=== PATIENT | female | born 1955 | race Two or more races ===

== ENCOUNTER 2024-11-11 14:52 | Emergency (ER) | payer MEDICARE, MEDICAID, SELFPAY ==
[2024-11-11 14:54] VITALS: BMI 27.4
[2024-11-11 15:10] VITALS: BP 160/99; PULSE 68; RESP 18; TEMP 36.9; O2SAT 95
[2024-11-11 15:11] VITALS: BMI 23.3
--- NOTE | 2024-11-11 15:18 | XR_ITS ---
Examination: CT lumbar spine, without contrast. 2-D sagittal reconstructions. 2-D coronal reconstructions. 3-D reconstructions. Date and time of exam:November 11, 2024 1502 hours INDICATIONS: Lower back pain nonhealing wound in the back, clinical diagnosis lower back infection CTDI: vol (mGy):18.8 DLP: (mGycm):497 Technique: Multiple 1.25 mm axial sections of the lumbar spine without intravenous contrast have been obtained. 2-D sagittal and coronal reconstructions have been obtained. 3-D reconstructions have been obtained. Low dose protocols were performed. One or more of the following dose reduction techniques were used; automated exposure control, adjustment of the mA and/or KV according to patient size, use of iterative reconstruction technique. Findings: Extensive edema in the subcutaneous fatty tissue posterior to the lumbar spine especially at the L3 and L4 levels, sagittal image 34 No drainable fluid-filled abscess Severe chronic osteoporotic compressions all lumbar vertebral bodies The pedicles and laminae transverse and posterior spinous processes appear intact Mild to millimeters central lumbar disc bulges at all levels Pathologic bone destruction involving the T12 vertebral body Please see the CT thoracic spine report to follow IMPRESSION: Severe osteopenia Extensive edema, cellulitis in the soft tissue posterior to the lumbar spine especially at the L3-L4 levels, but no fluid-filled drainable abscess Chronic osteoporotic compressions all lumbar vertebral bodies Pathologic bone destruction involving the T12 vertebral body, recommend MRI thoracic lumbar spine pre and post contrast follow-up
--- NOTE | 2024-11-11 15:18 | XR_ITS ---
Examination: CT thoracic spine, without contrast. 2-D sagittal reconstructions. 2-D coronal reconstructions. 3-D reconstructions. Date and time of exam:November 11, 2024 1549 hours INDICATIONS: Nonhealing wound with edema in the back, mid back pain this week CTDI: vol (mGy):21.9 DLP: (mGycm):729 Technique: Multiple 1.25 mm axial sections of the thoracic spine without intravenous contrast have been obtained. 2-D sagittal and coronal reconstructions have been obtained. 3-D reconstructions have been obtained. Low dose protocols were performed. One or more of the following dose reduction techniques were used; automated exposure control, adjustment of the mA and/or KV according to patient size, use of iterative reconstruction technique. Findings: Severe osteopenia Chronic osteoporotic compressions T12, T11, T10, T9, T8, T7, T6, T5, T4, T2 Pathologic appearing T12 vertebral body with cortical bone destruction, differential would include osteomyelitis, osseous metastatic disease Recommend MRI thoracic spine follow-up pre and postcontrast IMPRESSION: Pathologic appearing T12 vertebral body with cortical bone destruction Recommend MRI thoracic spine follow-up pre and postcontrast
--- NOTE | 2024-11-11 15:18 | XR_ITS ---
Examination: Ultrasound soft tissue extremity midline back TECHNIQUE: Sonographic images soft tissue midline back Exam date and time: 11/11/2024 1524 hours INDICATIONS: Palpable lump mid back with pain noted onset today FINDINGS: Edema at the area concern 2.2 x 0.7 x 2.0 cm IMPRESSION: Superficial edema at the area concern, consider CT examination back at the area concern follow-up, post intravenous contrast
--- NOTE | 2024-11-11 15:19 | PD.EDRME ---
Rapid Medical Screening Exam E Arrival date/time: 11/11/24 14:52 69-year-old female presents the emergency department complains of pain to the back patient reports ulceration to the back. Chief Complaint: Chest Pain Vital signs: Vital Signs Temperature 98.4 F 11/11/24 15:10 Pulse Rate 68 11/11/24 15:10 Respiratory Rate 18 11/11/24 15:10 Blood Pressure 160/99 H 11/11/24 15:10 Pulse Oximetry (%) 95 11/11/24 15:10 Oxygen Delivery Method Room Air 11/11/24 15:10
[2024-11-11 16:08] LABS: Basophils % (Auto) 0 % (0-2.5); Eosinophils # (Auto) 0.1 Thou/mm3 (0.0-0.5); Eosinophils % (Auto) 2 % (0-10); Hematocrit 38.2 % (36.0-46.0); Hemoglobin 12.4 g/dL (12.0-16.0); Immature Granulocytes % (Auto) 0 % (0-0); Immature Granulocytes Auto 0.01 Thou/mm3 (0.00-0.00); Lymphocytes # (Auto) 1.5 Thou/mm3 (1.0-4.8); Lymphocytes % (Auto) 34 % (10-50); Mean Corpuscular HGB Conc 32.5 g/dl (31.0-37.0); Mean Corpuscular Hemoglobin 30.7 pg (25.0-35.0); Mean Corpuscular Volume 95 fL (80-100); Monocytes # (Auto) 0.5 Thou/mm3 (0.0-0.8); Monocytes % (Auto) 12 % (0-12); Neutrophils # (Auto) 2.2 Thou/mm3 (1.8-7.7); Neutrophils % (Auto) 51 % (37-80); Nucleated Red Blood Cell % 0 /100 WBC (0); Platelet Count 157 Thou/mm3 (140-440); RDW Standard Deviation 48.4 fL (36.4-46.3); Red Blood Count 4.04 Miln/mm3 (4.00-5.20); White Blood Count 4.3 Thou/mm3 (3.6-11.0)
[2024-11-11 16:32] LABS: Alanine Aminotransferase 50 U/L (10-49); Albumin, Serum 4.2 gm/dL (3.4-4.8); Albumin/Globulin Ratio 1.1 (1.2-2.2); Alkaline Phosphatase 118 U/L (46-116); Anion Gap 6 (7-16); Aspartate Amino Transferase 40 U/L (0-34); BUN/Creatinine Ratio 33 Ratio (12-20); Bilirubin,Total 0.4 mg/dL (0.3-1.2); Blood Urea Nitrogen 20 mg/dL (9-23); Chloride 102 mMol/L (98-107); Creatinine (Component) 0.6 mg/dL (0.6-1.3); Estimated Creatinine Clearance 63.6 mL/min (>60); Glucose 99 mg/dL (74-106); Osmolality,Calculated 283 (275-295); Potassium 4.1 mMol/L (3.4-5.1); Sodium 141 mMol/L (136-145); Total Protein 8.2 gm/dL (5.7-8.2); eGFR > 60 See Note
[2024-11-11 16:41] LABS: Amphetamine/Methamp Scrn,U Positive (Negative); Barbiturate Screen,Urine Negative (Negative); Benzodiazepines Screen,Urine Negative (Negative); Benzoylecgonine Screen, Ur Negative (Negative); Fentanyl Screen,Urine Positive (Negative); Opiate Screen,Urine Negative (Negative); THC Screen,Urine Positive (Negative)
[2024-11-11 20:24] VITALS: BP 176/102; PULSE 68; RESP 18; TEMP 37.1; O2SAT 95
--- NOTE | 2024-11-11 20:39 | EDNOTE_ITS ---
ED General RME/HPI General Chief complaint: Skin/Abscess/Foreign Body Stated complaint: WOUND TO BACK, PAIN IN CHEST Time Seen by Provider: 11/11/24 16:56 Arrival date/time: 11/11/24 14:52 Limitations: no limitations RME / HPI RME / HPI narrative: 11/11/24 14:52 69-year-old female presents the emergency department complains of pain to the back patient reports ulceration to the back. DR. JUAN MAIN ED EVALUATION: 69 year old female presents to the Emergency Department with complaint of a hole in my back , she has an ulceration area on her back. Symptoms are moderate. Patient denies any fevers, chills, or any other symptoms at this time. PMHx: Hypertension, pelvic mass, PINA, Hep C (unknown if treated), osteoarthritis, COPD on home O2 (2L), substance use disorder [opioid use]. Kyphosis for 15 years. Social Hx: No tobacco, alcohol, or substance use. Related Data Allergies Allergy/AdvReac Type Severity Reaction Status Date / Time morphine Allergy Intermediate Rash Verified 11/11/24 14:54 Review of Systems Review of Systems Systems Reviewed: All systems reviewed, normal except as documented Narrative Review of Systems: GEN: No fever, no chills, no weight loss EYES: No discharge, no visual changes, no pain HEENT: No ear pain, no congestion, no sore throat PULM: No shortness of breath, no cough, no congestion CV: No chest pain, no dyspnea on exertion, no palpitations GI: No nausea, no vomiting, no diarrhea, no pain, no constipation : No frequency, no urgency and no dysuria MUSC/SKEL: No joint pain SKIN: No rash. + back ulceration/ skin redness (see HPI) PSYCH: No hallucinations, no depression HEME/LYMPH: No easy bleeding or bruising tendencies NEURO: No weakness, no headache Past Medical History Past Medical History NEUROLOGIC: Negative Neurological Disorders or Seizures CARDIAC: Positive Hypercholesterolemia, Edema and Hypertension; Negative Cardiac Disorders or Congestive Heart Failure RESPIRATORY: Positive Chronic Obstructive Pulmonary Disease (COPD), Asthma, Pneumonia, Sleep Apnea, Tobacco Use and Intubation GASTROINTESTINAL: Positive Gastrointestinal Disorders, Hepatitis and Gastroesophageal Reflux Disease GENITOURINARY: Negative Genitourinary Disorders or Renal Disease REPRODUCTIVE: Positive Uterine Prolapse; Negative Pelvic Inflammatory Disease MUSCULOSKELETAL: Positive Musculoskeletal Disorders and Arthritis ENDOCRINE: Negative Endocrine Disorders, Diabetes Mellitus Type 1 or Diabetes Mellitus Type 2 HEMATOLOGIC: Negative Blood Disorders or Sickle Cell Disease PSYCHO/SOCIAL: Positive Recreational Drug Use and Depression OTHER HISTORY: Positive Chicken Pox; Negative Hospitalization, Autoimmune Disease, Down Syndrome, Developmental Delay, Shingles, Falls, Blood Transfusions, Blood Transfusion Reaction, Anesthesia Reactions, Organ Transplant, Chemotherapy, Radiation Therapy, Hyperbaric Therapy, MRSA, VRSA, Vancomycin-Resistant Enterococci, Human Immunodeficiency Virus (HIV), Measles, Mumps, Rubella (Ma[place] Measles), Pertussis, Clostridium Difficile or Cancer Family History FAMILY HISTORY: Negative Family Respiratory Disorders, Family Cardiac Disorders or Family Gastrointestinal Problems Surgical History SURGICAL: Positive Cardiac Surgery, Hysterectomy and Tubal Ligation; Negative Endocrine Surgery, Ear Surgery, Abdominal Surgery, Nephrectomy, Joint Replacement, Neurologic Surgery or Organ Transplant Social History SMOKING STATUS: Never smoker SECOND HAND EXPOSURE: Yes SUBSTANCE USE: opiates and methamphetamine ED Exam General Limitations: Present no limitations General appearance: Present alert and in no apparent distress Head Head exam: Present atraumatic, normocephalic and normal inspection Eye Eye exam: Present normal appearance, PERRL and EOMI ENT ENT exam: Present normal exam, normal oropharynx and mucous membranes moist Neck Neck exam: Present normal inspection, full ROM and trachea midline Chest Chest inspection: Present normal inspection and symmetric chest wall rise Respiratory Respiratory exam: Present normal lung sounds bilaterally Cardiovascular Cardiovascular exam: Present regular rate, normal rhythm and normal heart sounds Abdominal Exam Abdominal exam: Present soft and normal bowel sounds; Absent mass Extremities Exam Extremities exam: Present full ROM and other (chronic vascular changes in her lower legs and all the way up to her knees) Back Exam Back exam: Present other (10 cm by 5 cm area of erythema, not warm to touch, and in the center of that there is an open wound in her back located in her kyphotic area, kyphosis for 15 years.) Neurological Exam Neurological exam: Present alert, oriented X3 and CN II-XII intact Psychiatric Psychiatric exam: Present normal affect and normal mood Skin Skin exam: Present warm, dry, intact and other (see back exam) Course Course Course Narrative: OBSERVATION NOTE: The patient was placed in ED observation care at 11/12/24 at 2100 hours. The patient was placed in ED observation care because of pending MRI. The patients past medical history, social history, and family history were reviewed. The plan of care will include serial examinations. 0600: Care signed out to Dr. Mancia (emergency physician). Past medical, surgical, social and family history reviewed. Vitals and home medications reviewed. Results and treatment plan discussed. They will assume the care of the patient at this time and will follow the patient, pending MRI of the thoracic spine. At this time, observation has ended. Quality Measures none Orders Category Date Time Status EKG (ED ONLY) *Do not use* NOW Care 11/11/24 20:52 Completed MRI Screening NOW Care 11/12/24 02:37 Active MRI Screening NOW Care 11/12/24 02:37 Active Miscellaneous Nursing Order X1 Care 11/11/24 20:[address] lumbar spine wo con Stat Exams 11/11/24 15:[address] thoracic spine wo con Stat Exams 11/11/24 15:18 Completed EKG (ED Only) Stat Exams 11/11/24 20:51 Draft MR thoracic spine wo/w con Stat Exams 11/12/24 Ordered US soft tissue lower back abd Stat Exams 11/11/24 15:18 Completed Blood Culture (Lab) Stat Lab 11/11/24 23:29 Received CBC Stat Lab 11/11/24 15:46 Completed CMP [Comprehensive Metabolic Panel] Stat Lab 11/11/24 15:46 Completed Drug Screen,Urine Stat Lab 11/11/24 15:41 Completed Clindamycin/Ns 600 mg Ivpb [Cleocin/Ns Ivpb] Med 11/11/24 23:00 Active 600 mg in 50 ml IV Q8HR Vancomycin Inj 1,000 mg Med 11/11/24 23:00 Discontinued Sodium Chloride 0.9% 250 ml [Ns] 250 ml IV X1 Vital Signs Vital signs: Vital Signs Temperature 98.4 F 11/11/24 15:10 Pulse Rate 68 11/11/24 15:10 Respiratory Rate 18 11/11/24 15:10 Blood Pressure 160/99 H 11/11/24 15:10 Pulse Oximetry (%) 95 11/11/24 15:10 Oxygen Delivery Method Room Air 11/11/24 15:10 [facility] Patient data External records reviewed:: [facility] previous records (Reviewed last ED visit dated 04/07/24, discharged with the following: Foot laceration) Clinical information provided by:: patient Social determinants that could affect healthcare access:: none Patient has the following chronic illnesses:: Hypertension, pelvic mass, PINA, Hep C (unknown if treated), osteoarthritis, COPD on home O2 (2L), substance use disorder [opioid use]. Kyphosis for 15 years. How is presenting disease/condition affected by chronic disease/condition?: e xacerbated by Evaluation data The following diagnostics were reviewed and interpreted by me:: lab results, radiology exam(s) and EKG tracing(s) (done at 2252, NSR, rate of 66, normal intervals, normal axis, no STEMI, according to my interpretation.) Lab and/or radiology exams considered but not ordered:: none Interpretation Summary: Procedure(s): CT thoracic spine wo con Accession Number(s): [id number] cc: Saloni (CORAL),Karthikeyan MONCADA; Roldan Mcfarland MD; Jack Dumont MD~ Examination: CT thoracic spine, without contrast. 2-D sagittal reconstructions. 2-D coronal reconstructions. 3-D reconstructions. Date and time of exam:November 11, 2024 1549 hours INDICATIONS: Nonhealing wound with edema in the back, mid back pain this week CTDI: vol (mGy):21.9 DLP: (mGycm):729 Technique: Multiple 1.25 mm axial sections of the thoracic spine without intravenous contrast have been obtained. 2-D sagittal and coronal reconstructions have been obtained. 3-D reconstructions have been obtained. Low dose protocols were performed. One or more of the following dose reduction techniques were used; automated exposure control, adjustment of the mA and/or KV according to patient size, use of iterative reconstruction technique. Findings: Severe osteopenia Chronic osteoporotic compressions T12, T11, T10, T9, T8, T7, T6, T5, T4, T2 Pathologic appearing T12 vertebral body with cortical bone destruction, differential would include osteomyelitis, osseous metastatic disease Recommend MRI thoracic spine follow-up pre and postcontrast IMPRESSION: Pathologic appearing T12 vertebral body with cortical bone destruction Recommend MRI thoracic spine follow-up pre and postcontrast Dictated By: Jack Dumont MD Procedure(s): US soft tissue lower back abd Accession Number(s): [id number] cc: Saloni STANLEY),Karthikeyan MONCADA; Jack Dumont MD~ Examination: Ultrasound soft tissue extremity midline back TECHNIQUE: Sonographic images soft tissue midline back Exam date and time: 11/11/2024 1524 hours INDICATIONS: Palpable lump mid back with pain noted onset today FINDINGS: Edema at the area concern 2.2 x 0.7 x 2.0 cm IMPRESSION: Superficial edema at the area concern, consider CT examination back at the area concern follow-up, post intravenous contrast Dictated By: Jack Dumont MD Procedure(s): CT lumbar spine wo con Accession Number(s): [id number] cc: Saloni STANLEY),Karthikeyan MONCADA; Roldan Mcfarland MD; Jack Dumont MD~ Examination: CT lumbar spine, without contrast. 2-D sagittal reconstructions. 2-D coronal reconstructions. 3-D reconstructions. Date and time of exam:November 11, 2024 1502 hours INDICATIONS: Lower back pain nonhealing wound in the back, clinical diagnosis lower back infection CTDI: vol (mGy):18.8 DLP: (mGycm):497 Technique: Multiple 1.25 mm axial sections of the lumbar spine without intravenous contrast have been obtained. 2-D sagittal and coronal reconstructions have been obtained. 3-D reconstructions have been obtained. Low dose protocols were performed. One or more of the following dose reduction techniques were used; automated exposure control, adjustment of the mA and/or KV according to patient size, use of iterative reconstruction technique. Findings: Extensive edema in the subcutaneous fatty tissue posterior to the lumbar spine especially at the L3 and L4 levels, sagittal image 34 No drainable fluid-filled abscess Severe chronic osteoporotic compressions all lumbar vertebral bodies The pedicles and laminae transverse and posterior spinous processes appear intact Mild to millimeters central lumbar disc bulges at all levels Pathologic bone destruction involving the T12 vertebral body Please see the CT thoracic spine report to follow IMPRESSION: Severe osteopenia Extensive edema, cellulitis in the soft tissue posterior to the lumbar spine especially at the L3-L4 levels, but no fluid-filled drainable abscess Chronic osteoporotic compressions all lumbar vertebral bodies Pathologic bone destruction involving the T12 vertebral body, recommend MRI thoracic lumbar spine pre and post contrast follow-up Dictated By: Jack Dumont MD Medications Medications considered but not ordered:: none Medication administrations:: Medication Administration History Clindamycin/Sodium Chloride (Cleocin/Ns Ivpb) 600 mg in 50 mls @ 100 mls/hr IV Q8HR RANULFO Stop: 11/18/24 22:59 Last Infusion: 11/12/24 00:10 Dose: Infused Documented By: Admin: 11/11/24 23:26 Dose: 100 mls/hr Documented By: SF Discontinued Medications Vancomycin HCl 1,000 mg/ (Sodium Chloride) 250 mls @ 150 mls/hr IV X1 ONE Stop: 11/12/24 00:39 Last Infusion: 11/12/24 01:55 Dose: Infused Documented By: Admin: 11/12/24 00:09 Dose: 150 mls/hr Documented By: ANDRES see above if any Consultations Consultation(s) initiated? (list below): No Diagnosis Differential Diagnosis ED Complaint MDM: osteomyelitis, cellulitis, ulcer Most likely diagnosis given after review of the tests above:: MRI pending at sign out. Admission Indicated Admission indicated?: not indicated Explain why admission is indicated or not indicated:: Patient is pending MRI of the thoracic spine at signout to r/o osteomyelitis. Admission Request Was there a request for admission?: No Disposition Plan Disposition Plan: other (specify) (Signed out to Dr. Mancia at 0600 pending MRI of the thoracic spine.) Medical Decision Making MDM Narrative MDM Narrative: I, Angeline Keating am scribing for and in the presence of Dr. Juan. Differential Diagnosis Differential Diagnosis: osteomyelitis, cellulitis, ulcer Lab Data 11/11/24 15:46 11/11/24 15:46 Labs: Lab Results 11/11/24 11/11/24 Range/Units 15:41 15:46 WBC 4.3 (3.6-11.0) Thou/mm3 RBC 4.04 (4.00-5.20) Miln/mm3 Hgb 12.4 (12.0-16.0) g/dL Hct 38.2 (36.0-46.0) % MCV 95 (80-100) fL MCH 30.7 (25.0-35.0) pg MCHC 32.5 (31.0-37.0) g/dl RDW Std Deviation 48.4 H (36.4-46.3) fL Plt Count 157 (140-440) Thou/mm3 Neut % (Auto) 51 (37-80) % Lymph % (Auto) 34 (10-50) % [place] % (Auto) 12 (0-12) % Eos % (Auto) 2 (0-10) % Baso % (Auto) 0 (0-2.5) % Neut # (Auto) 2.2 (1.8-7.7) Thou/mm3 Lymph # (Auto) 1.5 (1.0-4.8) Thou/mm3 [place] # (Auto) 0.5 (0.0-0.8) Thou/mm3 Eos # (Auto) 0.1 (0.0-0.5) Thou/mm3 Baso # (Auto) 0.0 (0.0-0.2) Thou/mm3 Immature Gran # (Auto) 0.01 H (0.00-0.00) Thou/mm3 Absolute Nucleated RBC 0.00 (0.00-0.00) Thou/mm3 Immature Gran % 0 (0-0) % Nucleated RBC % 0 (0) /100 WBC Sodium 141 (136-145) mMol/L Potassium 4.1 (3.4-5.1) mMol/L Chloride 102 (98-107) mMol/L Carbon Dioxide 33.0 H (20.0-31.0) mMol/L Anion Gap 6 L (7-16) BUN 20 (9-23) mg/dL Creatinine 0.6 (0.6-1.3) mg/dL Estim Creat Clear Calc 63.6 (>60) mL/min eGFR > 60 (60 - ) See Note BUN/Creatinine Ratio 33 H (12-20) Ratio Glucose 99 (74-106) mg/dL Calculated Osmolality 283 (275-295) Calcium 9.0 (8.3-10.6) mg/dL Corrected Calcium 9.0 (8.5-10.1) mg/dL Total Bilirubin 0.4 (0.3-1.2) mg/dL AST 40 H (0-34) U/L ALT 50 H (10-49) U/L Alkaline Phosphatase 118 H (46-116) U/L Total Protein 8.2 (5.7-8.2) gm/dL Albumin 4.2 (3.4-4.8) gm/dL Globulin 4.0 H (2.3-3.5) gm/dL Albumin/Globulin Ratio 1.1 L (1.2-2.2) Urine Opiates Screen Negative (Negative) Urine Fentanyl Screen Positive A (Negative) Ur Barbiturates Screen Negative (Negative) U Amphetamin/Meth Scrn Positive A (Negative) U Benzodiazepines Scrn Negative (Negative) U Cocaine Metab Screen Negative (Negative) U Marijuana (THC) Screen Positive A (Negative) Discharge Plan Plan Disposition Comment: Stable at discharge Prescriptions/Referrals Referrals: Roldan Mcfarland MD [Primary Care Provider] - In 1 week Problem List Clinical Impression: Methadone dependence, Compression fracture, Chronic back pain Patient/Caregiver Discharge Instructions Print Language: Yakut
--- NOTE | 2024-11-11 20:45 | PC.NURSE ---
PT TO ER WITH C/O HAVING A HOLE IN MY BACK . PT PRESENTS WITH AN ABSCESS TO BACK AREA THAT APPEARS RED, SWELLING AND MINIMAL DISCHARGE. PT STATES SHE NOTED IT WHEN A FRIEND TOLD HER SHE HAD A HOLD IN HER BACK YESTERDAY. PT HAS HX OF KYPHOSIS FOR APPROX 15 YEARS. PT DENIES ANY RECENT FEVER. OR INJURY TO AREA. PT PLACED ON VITAL MACHINE MONITORING. CALL LIGHT WITHIN REACH. LOW AT LOWEST POSITION. PT WALKER WITHIN REACH.
--- NOTE | 2024-11-11 20:51 | EKG_ITS ---
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
[2024-11-11] MEDS: CLINDAMYCIN/NS 600 MG IVPB 600 MG/50 ML BAG 100 MG IV (23:26)
[2024-11-12] VITALS (12 sets, daily range): BP systolic 120–165; BP diastolic 62–88; PULSE 58–92; RESP 16–19; TEMP 36.4–37.2; O2SAT 95–100
--- NOTE | 2024-11-12 | XR_ITS ---
Examination: MRI lumbar spine, without intravenous contrast. Exam date and time: November 12, 2024 1216 hours Technique: Multiple axial, sagittal and coronal images of the lumbar spine have been obtained with the Siemens high-resolution 1.5 Alison MRI scanner. Images obtained included T2 weighted fat suppressed sagittal sections, TR 3500, TE 46, T2 weighted coronal fat suppressed images, TR 3050, TE 84, T2-weighted transverse fat suppressed images, TR 30-60, TE 63, proton density transverse images, TR 4720, TE 46, and T1 weighted coronal images, TR 560, TE 13. Patient could not tolerate the postcontrast images. Findings: Severe osteopenia Chronic osteoporotic compressions all lumbar vertebral bodies Cortical bone destruction involving the compressed T12 vertebral body The patient could not tolerate the contrast images, hopefully these can be obtained follow-up as they are essential for confirming osseous metastatic disease IMPRESSION: Cortical bone destruction involving the compressed T12 vertebral body Focally the patient can return for postcontrast images to assess this vertebral body
--- NOTE | 2024-11-12 | XR_ITS ---
Examination: MRI thoracic spine, without intravenous contrast. MRI thoracic spine , with intravenous contrast. Exam date and time: November 12, 2024 1216 hours INDICATIONS: History chronic lower back pain, pathologic appearing fracture T12 vertebral body Technique: Multiple axial, sagittal and coronal images of the thoracic spine have been obtained with the Siemens high-resolution 1.5 Alison MRI scanner. Images obtained included T2 weighted fat suppressed sagittal sections, TR 3500, TE 46, T2 weighted coronal fat suppressed images, TR 3050, TE 84, T2-weighted transverse fat suppressed images, TR 30-60, TE 63, proton density transverse images, TR 4720, TE 46, and T1 weighted coronal images, TR 560, TE 13. Patient could not tolerate postcontrast imaging Findings: Limited study, the patient could not tolerate postcontrast images Pathologic appearing compression of the T12 vertebral body, the posterior margin of this vertebral mildly impinging upon the thoracic cord, sagittal image 5 Oblique the patient can return after sedation for follow-up images post contrast to best exclude osseous metastatic disease Chronic osteoporotic compressions more upper dorsal vertebral bodies are noted IMPRESSION: Pathologic appearing compression of the T12 vertebral body Hopefully the patient should return with prestudy sedation to complete the postcontrast images
[2024-11-12] MEDS: Vancomycin Inj 1,000 MG in SODIUM CHLORIDE 0.9% 250 ML 250 ML 150 MG IV (00:09)
[2024-11-12] MEDS: CLINDAMYCIN/NS 600 MG IVPB 600 MG/50 ML BAG 100 MG IV ×3 (06:34→23:55)
--- NOTE | 2024-11-12 06:44 | PD.EDADDENDU ---
Emergency Room Addendum <Alondra Dela Cruz - Last Filed: 11/12/24 13:56> Addendum Narrative: 0600: Care assumed from Dr. Juan, the previous shift emergency physician. Past medical, surgical, social and family history reviewed. Vitals and home medications reviewed. I will assume the care of the patient at this time, pending MRI thoracic spine wo/w. Please refer to the emergency department record for history and examination from initial visit.? Nursing notes reviewed by me. Vital signs reviewed by me. [facility] reviewed by me. Patient was last evaluated in the ED on 04/07/2024 for foot pain. <Angeline Keating - Last Filed: 11/12/24 19:08> Addendum Narrative: 0600: Care assumed from Dr. Juan, the previous shift emergency physician. Past medical, surgical, social and family history reviewed. Vitals and home medications reviewed. I will assume the care of the patient at this time, pending MRI thoracic spine wo/w. Please refer to the emergency department record for history and examination from initial visit.? Nursing notes reviewed by me. Vital signs reviewed by me. [facility] records reviewed by me. Patient was last evaluated in the ED on 04/07/2024 for foot pain. 1800: Patient was signed out to Dr. Juan. Past medical, surgical, social and family history reviewed. Vitals and home medications reviewed. Results and treatment plan discussed. They will assume the care of the patient at this time and will follow the patient, pending continuation of care. RADIOLOGY Procedure(s): MR lumbar spine wo/w con Accession Number(s): [id number] cc: Roldan Mcfarland MD; Jack Dumont MD; Saba Mancia MD~ Examination: MRI lumbar spine, without intravenous contrast. Exam date and time: November 12, 2024 1216 hours Technique: Multiple axial, sagittal and coronal images of the lumbar spine have been obtained with the Siemens high-resolution 1.5 Alison MRI scanner. Images obtained included T2 weighted fat suppressed sagittal sections, TR 3500, TE 46, T2 weighted coronal fat suppressed images, TR 3050, TE 84, T2-weighted transverse fat suppressed images, TR 30-60, TE 63, proton density transverse images, TR 4720, TE 46, and T1 weighted coronal images, TR 560, TE 13. Patient could not tolerate the postcontrast images. Findings: Severe osteopenia Chronic osteoporotic compressions all lumbar vertebral bodies Cortical bone destruction involving the compressed T12 vertebral body The patient could not tolerate the contrast images, hopefully these can be obtained follow-up as they are essential for confirming osseous metastatic disease IMPRESSION: Cortical bone destruction involving the compressed T12 vertebral body Focally the patient can return for postcontrast images to assess this vertebral body Dictated By: Jack Dumont MD Procedure(s): MR thoracic spine wo/w con Accession Number(s): [id number] cc: Roldan Mcfarland MD; Jack Dumont MD; Doreen Juan MD~ Examination: MRI thoracic spine, without intravenous contrast. MRI thoracic spine , with intravenous contrast. Exam date and time: November 12, 2024 1216 hours INDICATIONS: History chronic lower back pain, pathologic appearing fracture T12 vertebral body Technique: Multiple axial, sagittal and coronal images of the thoracic spine have been obtained with the Siemens high-resolution 1.5 Alison MRI scanner. Images obtained included T2 weighted fat suppressed sagittal sections, TR 3500, TE 46, T2 weighted coronal fat suppressed images, TR 3050, TE 84, T2-weighted transverse fat suppressed images, TR 30-60, TE 63, proton density transverse images, TR 4720, TE 46, and T1 weighted coronal images, TR 560, TE 13. Patient could not tolerate postcontrast imaging Findings: Limited study, the patient could not tolerate postcontrast images Pathologic appearing compression of the T12 vertebral body, the posterior margin of this vertebral mildly impinging upon the thoracic cord, sagittal image 5 Oblique the patient can return after sedation for follow-up images post contrast to best exclude osseous metastatic disease Chronic osteoporotic compressions more upper dorsal vertebral bodies are noted IMPRESSION: Pathologic appearing compression of the T12 vertebral body Hopefully the patient should return with prestudy sedation to complete the postcontrast images Dictated By: Jack Dumont MD
--- NOTE | 2024-11-12 07:22 | PC.NURSE ---
report received from pm nurse, patient lying on her right lateral side, no apparent distress noted, patient asleep awakens to voice, skin warm dry and pink, patient to er with c/o chest pain and wound to mid back. Currently, patient denies chest pain however, c/o mid back soreness at wound site and rates it at an 8/10 and is tolerable at this time, patient awaiting MRI scan, VSS, patient up to bathroom using walker without assistance.
[2024-11-12] MEDS: LORazepam 2 MG/ML VIAL 1 MG IVP (09:31)
[2024-11-12] MEDS: HYDROmorphone INJ 2 MG/ML VIAL 1 MG IVP (10:00)
[2024-11-12] MEDS: ONDANSETRON INJ 2 MG/ML INJ 2 ML 4 MG IV (10:01)
--- NOTE | 2024-11-12 10:20 | PC.NURSE ---
Per Clay, industrial machine system technician states he was unable to do exam do to patient not being able to lie flat on MRI table, Dr. Mancia suggesting placing patient on her side, per Tech states unable to get images with patient on her side, Dr. Mancia made aware.
--- NOTE | 2024-11-12 11:45 | PC.NURSE ---
Patient lying in gurney on her left side sleeping, arouses and responds normally to voice, Spoke with biology specimen technician, Al states they will attempt to do MRI with patient on her side shortly.
--- NOTE | 2024-11-12 12:00 | PC.NURSE ---
Patient gone back to MRI
--- NOTE | 2024-11-12 14:09 | PC.NURSE ---
Patient lying in gurney sleeping awakens to voice, skin warm dry and pink, awaiting MRI results, call light within reach.
--- NOTE | 2024-11-12 17:04 | PC.NURSE ---
Spoke with Clay from MRI states patient was on MRI table was given contrast and patient refused to continue with study do to having too much pain, therefore they , asked Clay if he could take patient back to MRI to complete exam if we administer pain medication, per Clay they will have to wait for 24 hrs before administering more contrast for exam, Dr. Mancia made aware, ok to feed patient will order late tray.
--- NOTE | 2024-11-12 17:55 | PC.NURSE ---
Patient provided with dinner tray
[2024-11-12 18:27] LABS: Basophils % (Auto) 1 % (0-2.5); Eosinophils # (Auto) 0.1 Thou/mm3 (0.0-0.5); Eosinophils % (Auto) 2 % (0-10); Hematocrit 38.6 % (36.0-46.0); Hemoglobin 12.5 g/dL (12.0-16.0); Immature Granulocytes % (Auto) 0 % (0-0); Immature Granulocytes Auto 0.01 Thou/mm3 (0.00-0.00); Lymphocytes % (Auto) 28 % (10-50); Mean Corpuscular HGB Conc 32.4 g/dl (31.0-37.0); Mean Corpuscular Hemoglobin 30.3 pg (25.0-35.0); Mean Corpuscular Volume 94 fL (80-100); Monocytes # (Auto) 0.5 Thou/mm3 (0.0-0.8); Monocytes % (Auto) 14 % (0-12); Neutrophils % (Auto) 55 % (37-80); Nucleated Red Blood Cell % 0 /100 WBC (0); Platelet Count 169 Thou/mm3 (140-440); RDW Standard Deviation 46.6 fL (36.4-46.3); Red Blood Count 4.13 Miln/mm3 (4.00-5.20); White Blood Count 3.7 Thou/mm3 (3.6-11.0)
[2024-11-12 18:34] LABS: Alanine Aminotransferase 59 U/L (10-49); Albumin, Serum 3.7 gm/dL (3.4-4.8); Alkaline Phosphatase 96 U/L (46-116); Anion Gap 2 (7-16); Aspartate Amino Transferase 68 U/L (0-34); BUN/Creatinine Ratio 21 Ratio (12-20); Bilirubin,Total 0.7 mg/dL (0.3-1.2); Blood Urea Nitrogen 15 mg/dL (9-23); Calcium (Corrected) 9.2 mg/dL (8.5-10.1); Carbon Dioxide 35.9 mMol/L (20.0-31.0); Chloride 101 mMol/L (98-107); Creatinine (Component) 0.7 mg/dL (0.6-1.3); Estimated Creatinine Clearance 54.5 mL/min (>60); Globulin 3.7 gm/dL (2.3-3.5); Glucose 62 mg/dL (74-106); Osmolality,Calculated 276 (275-295); Sodium 139 mMol/L (136-145); Total Protein 7.4 gm/dL (5.7-8.2); eGFR > 60 See Note
[2024-11-12 18:49] LABS: Sed Rate (ESR) 24 mm/hr (0-30)
--- NOTE | 2024-11-12 19:08 | EDNOTE_ITS ---
Emergency Room Addendum <Angeline Keating - Last Filed: 11/12/24 22:07> Addendum Narrative: 1800: Care assumed from Dr. Mancia, the previous shift emergency physician. Past medical, surgical, social and family history reviewed. Vitals and home medications reviewed. I will assume the care of the patient at this time, pending continuation of care including continue giving antibiotics. Please refer to the emergency department record for history and examination from initial visit.? Physical exam by me shows patient is afebrile, sitting in bed, sleeping. Will repeat MRI in the morning and re-evaluate. 0600: Patient was signed out to Dr. Mancia Past medical, surgical, social and family history reviewed. Vitals and home medications reviewed. Results and treatment plan discussed. They will assume the care of the patient at this time and will follow the patient, pending repeat MRI. <Lara Mcfarland - Last Filed: 11/13/24 04:18> Addendum Narrative: 1800: Care assumed from Dr. Mancia, the previous shift emergency physician. Past medical, surgical, social and family history reviewed. Vitals and home medications reviewed. I will assume the care of the patient at this time, pending continuation of care including continue giving antibiotics. Please refer to the emergency department record for history and examination from initial visit.? Physical exam by me shows patient is afebrile, sitting in bed, sleeping. Will repeat MRI in the morning and re-evaluate. OBSERVATION NOTE: The patient was placed in ED observation care at 11/12/24 at 1800 hours. The patient was placed in ED observation care because of pending repeat MRI. The patients past medical history, social history, and family history were reviewed. The plan of care will include serial examinations. 0600: Patient was signed out to Dr. Mancia Past medical, surgical, social and family history reviewed. Vitals and home medications reviewed. Results and humble tment plan discussed. They will assume the care of the patient at this time and will follow the patient, pending repeat MRI. At this time, observation has ended.
--- NOTE | 2024-11-13 | XR_ITS ---
Examination: MRI thoracic spine with intravenous contrast TECHNIQUE: Multiple axial sagittal MR images thoracic spine post intravenous administration 10 cc gadolinium Exam date and time: November 13, 2024 0943 hours INDICATIONS: CT thoracic spine November 11, 2024 pathologic appearing severe compression fracture T12 vertebral body, significant back pain this week FINDINGS: Severe osteopenia Multiple chronic osteoporotic compressions vertebral bodies However, no pathologic abnormal enhancement of thoracic vertebral bodies including no abnormal enhancement involving the compressed T12 vertebral body IMPRESSION: No findings diagnostic for osseous metastatic disease
--- NOTE | 2024-11-13 | XR_ITS ---
Examination: MRI lumbar spine with intravenous contrast TECHNIQUE: Multiple axial sagittal MR thoracic spine images post intravenous ministration 10 cc gadolinium INDICATIONS: Back pain this week, CT scan lumbar spine November 11, 2024 severe osteopenia, severe compression fracture T12 vertebral body with possible pathologic bone destruction Exam date and time: November 13, 2024 at 0934 hours FINDINGS: Severe osteopenia Chronic osteoporotic compressions lumbar vertebral bodies Minimal enhancement midportion compressed T12 vertebral body indicating subacute or acute nature of the compression fracture,. However no abnormal enhancement diagnostic for osseous metastatic disease Also no enhancing epidural tumor impinging upon the conus medullaris IMPRESSION: No findings diagnostic for osseous metastatic disease
[2024-11-13 02:53] VITALS: BP 158/82; PULSE 64; RESP 18; TEMP 36.6; O2SAT 95
--- NOTE | 2024-11-13 05:59 | EDNOTE_ITS ---
Emergency Room Addendum Addendum Narrative: 0600: Care assumed from Dr. Juan, the previous shift emergency physician. Past medical, surgical, social and family history reviewed. Vitals and home medications reviewed. I will assume the care of the patient at this time, pending repeat lumbar spine and thoracic spine MRIs and final disposition. Please refer to the emergency department record for history and examination from initial visit.? Physical exam by me shows patient under no acute distress at this time. 1220: Patient remains clinically stable throughout the emergency department visit. Re-assessment at the time of disposition demonstrates that the patient is in no acute distress. We reviewed all the results, analysis, and treatment plans. Patient is amenable to discharge. Strict return precautions were outlined. Patient was discharged in stable condition. Diagnoses: Methadone dependence, Compression fracture, Chronic back pain, Skin infection, Amphetamine abuse RADIOLOGY Procedure(s): MR lumbar spine w con Accession Number(s): [id number] cc: Roldan Mcfarland MD; Jack Dumont MD; Saba Mancia MD~ Examination: MRI lumbar spine with intravenous contrast TECHNIQUE: Multiple axial sagittal MR thoracic spine images post intravenous ministration 10 cc gadolinium INDICATIONS: Back pain this week, CT scan lumbar spine November 11, 2024 severe osteopenia, severe compression fracture T12 vertebral body with possible pathologic bone destruction Exam date and time: November 13, 2024 at 0934 hours FINDINGS: Severe osteopenia Chronic osteoporotic compressions lumbar vertebral bodies Minimal enhancement midportion compressed T12 vertebral body indicating subacute or acute nature of the compression fracture,. However no abnormal enhancement diagnostic for osseous metastatic disease Also no enhancing epidural tumor impinging upon the conus medullaris IMPRESSION: No findings diagnostic for osseous metastatic disease Dictated By: Jack Dumont MD Procedure(s): MR thoracic spine w [facility] Accession Number(s): [id number] cc: Roldan Mcfarland MD; Jack Dumont MD; Saba Mancia MD~ Examination: MRI thoracic spine with intravenous contrast TECHNIQUE: Multiple axial sagittal MR images thoracic spine post intravenous administration 10 cc gadolinium Exam date and time: November 13, 2024 0943 hours INDICATIONS: CT thoracic spine November 11, 2024 pathologic appearing severe compression fracture T12 vertebral body, significant back pain this week FINDINGS: Severe osteopenia Multiple chronic osteoporotic compressions vertebral bodies However, no pathologic abnormal enhancement of thoracic vertebral bodies including no abnormal enhancement involving the compressed T12 vertebral body
[2024-11-13 06:21] VITALS: BP 130/69; PULSE 61; RESP 16; TEMP 36.5; O2SAT 99
[2024-11-13] MEDS: CLINDAMYCIN/NS 600 MG IVPB 600 MG/50 ML BAG 100 MG IV (06:28)
[2024-11-13 08:34] VITALS: BP 139/86; PULSE 61; RESP 16; TEMP 36.7; O2SAT 98
[2024-11-13] MEDS: HYDROmorphone INJ 2 MG/ML VIAL 1 MG IVP (09:16)
[2024-11-13] MEDS: LORazepam 2 MG/ML VIAL 1 MG IVP (09:19)
[2024-11-13 11:01] VITALS: BP 119/57; PULSE 59; RESP 16; TEMP 36.8; O2SAT 99
[2024-11-13] MEDS: TRIMETHOPRIM/SULFA 160/800 DS TABLET 1 TAB PO (12:43)
--- NOTE | 2024-11-13 13:05 | PC.NURSE ---
patient is homeless, she is provided with food, and clothing.
== END 2024-11-13 13:31 | disposition home or self-care (01) ==
PROVIDERS: Nurse Practitioner Primary Care; Emergency Provider Emergency Medicine; PCP Family Medicine
DX: M48.54XA Collapsed vertebra, not elsewhere classified, thoracic region, initial encounter for fracture (principal); F11.20 Opioid dependence, uncomplicated; M89.8X8 Other specified disorders of bone, other site; R94.31 Abnormal electrocardiogram [ECG] [EKG]; M81.0 Age-related osteoporosis without current pathological fracture; L03.312 Cellulitis of back [any part except buttock and flank]; I10 Essential (primary) hypertension; E78.00 Pure hypercholesterolemia, unspecified
CPT/HCPCS: 36415; 72128; 72131; 72147; 72149; 72157; 72158; 76705; 80053; 80307; 85025; 85652; 87040; 93005; 96365; 96366; 96367; 96375; 96376; 99285; A9579; J2060; J2405; J3371; J3490; J7050; S0077; A9270; J0737

== ENCOUNTER 2025-08-09 12:36 | Emergency (ER) | payer MEDICARE, MEDICAID, SELFPAY ==
[2025-08-09] VITALS (13 sets, daily range): BP systolic 120–154; BP diastolic 63–93; PULSE 56–68; RESP 18–20; TEMP 36.6–36.9; O2SAT 91–97; BMI 29.4
--- NOTE | 2025-08-09 13:04 | XR_ITS ---
Examination: CT abdomen and pelvis without contrast. Coronal 3-D reconstructions. Sagittal 2-D reconstructions. Date and time of exam: August 09, 2025, 1423 hours INDICATIONS: Vaginal bleeding and abdominal pain beginning 5 weeks ago COMPARISON: March 07, 2022 CTDI: vol (mGy): 6.24 DLP: (mGycm): 308 Technique: Axial images of the abdomen have been obtained, 3 mm slice thickness Intravenous contrast material has not been administered. Low dose protocols were performed. One or more of the following dose reduction techniques were used; automated exposure control, adjustment of the mA and/or KV according to patient size, use of iterative reconstruction technique. 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
--- NOTE | 2025-08-09 13:04 | XR_ITS ---
Examination: Pelvic ultrasound, transabdominal, complete Technique: Transabdominal ultrasound of the pelvis performed using grayscale imaging Date and time of exam: August 09, 2025, 1514 hours INDICATIONS: Vaginal bleeding beginning 3 weeks ago FINDINGS: Complex mass in the mid pelvis 12.6 x 8.3 x 8.6 cm Ovaries are obscured by bowel gas IMPRESSION: Large complex mass in the mid pelvis on this limited study Recommend repeating the CT pelvis portion of the study with intravenous contrast
--- NOTE | 2025-08-09 13:05 | PD.EDRME ---
Rapid Medical Screening Exam RME Arrival date/time: 08/09/25 12:36 70-year-old female with a history of a hysterectomy presents to the emergency room with a chief complaint of vaginal bleeding x 5 weeks I have greeted and performed a focused initial assessment of this patient. A comprehensive ED assessment and evaluation of the patient, analysis of all test results, and completion of the medical decision making process will be conducted by additional ED providers. Chief Complaint: Urogenital-Female Time Seen by Provider: 08/09/25 12:44 Vital signs: Vital Signs Temperature 98.5 F 08/09/25 12:53 Pulse Rate 65 08/09/25 12:53 Respiratory Rate 18 08/09/25 12:53 Blood Pressure 154/93 H 08/09/25 12:53 Pulse Oximetry (%) 95 08/09/25 12:53 Oxygen Delivery Method Room Air 08/09/25 12:53 Vital signs reviewed by provider: Yes
[2025-08-09 13:34] LABS: Collection Type, Urine Clean Catch
[2025-08-09 14:07] LABS: Amphetamine/Methamp Scrn,U Positive (Negative); Barbiturate Screen,Urine Negative (Negative); Benzodiazepines Screen,Urine Negative (Negative); Benzoylecgonine Screen, Ur Negative (Negative); Fentanyl Screen,Urine Negative (Negative); Opiate Screen,Urine Negative (Negative); THC Screen,Urine Negative (Negative)
[2025-08-09 14:14] LABS: Basophils # (Auto) 0.0 Thou/mm3 (0.0-0.2); Basophils % (Auto) 0 % (0-2.5); Eosinophils # (Auto) 0.3 Thou/mm3 (0.0-0.5); Eosinophils % (Auto) 4 % (0-10); Hematocrit 37.0 % (36.0-46.0); Hemoglobin 12.1 g/dL (12.0-16.0); Immature Granulocytes Auto 0.02 Thou/mm3 (0.00-0.00); Lymphocytes # (Auto) 1.9 Thou/mm3 (1.0-4.8); Lymphocytes % (Auto) 23 % (10-50); Mean Corpuscular HGB Conc 32.7 g/dl (31.0-37.0); Mean Corpuscular Hemoglobin 30.5 pg (25.0-35.0); Mean Corpuscular Volume 93 fL (80-100); Monocytes # (Auto) 0.7 Thou/mm3 (0.0-0.8); Monocytes % (Auto) 9 % (0-12); Neutrophils # (Auto) 5.1 Thou/mm3 (1.8-7.7); Neutrophils % (Auto) 64 % (37-80); Nucleated Red Blood Cell # 0.00 Thou/mm3 (0.00-0.00); Nucleated Red Blood Cell % 0 /100 WBC (0); Platelet Count 147 Thou/mm3 (140-440); RDW Standard Deviation 45.6 fL (36.4-46.3); Red Blood Count 3.97 Miln/mm3 (4.00-5.20); White Blood Count 8.0 Thou/mm3 (3.6-11.0)
--- NOTE | 2025-08-09 14:23 | PD.EDRME ---
Rapid Medical Screening Exam RME Arrival date/time: 08/09/25 12:36 08/09/25 12:36 70-year-old female with a history of a hysterectomy presents to the emergency room with a chief complaint of vaginal bleeding x 5 weeks I have greeted and performed a focused initial assessment of this patient. A comprehensive ED assessment and evaluation of the patient, analysis of all test results, and completion of the medical decision making process will be conducted by additional ED providers. Chief Complaint: Urogenital-Female Time Seen by Provider: 08/09/25 12:44 Vital signs: Vital Signs Temperature 98.5 F 08/09/25 12:53 Pulse Rate 65 08/09/25 12:53 Respiratory Rate 18 08/09/25 12:53 Blood Pressure 154/93 H 08/09/25 12:53 Pulse Oximetry (%) 95 08/09/25 12:53 Oxygen Delivery Method Room Air 08/09/25 12:53 RME Narrative: 08/09/25 12:36 70-year-old female with a history of a hysterectomy presents to the emergency room with a chief complaint of vaginal bleeding x 5 weeks I have greeted and performed a focused initial assessment of this patient. A comprehensive ED assessment and evaluation of the patient, analysis of all test results, and completion of the medical decision making process will be conducted by additional ED providers.
[2025-08-09 14:25] LABS: Bacteria,Urine Rare; Bilirubin,Urine Negative (Negative); Blood,Urine Trace (Negative); Clarity,Urine Turbid (Clear/Hazy); Color,Urine Yellow (Lt Yel-Yel); Glucose, Urine Negative (Negative); Ketones,Urine Negative (Negative); Leukocyte Esterase,Urine Positive (Negative); Nitrite,Urine Negative (Negative); PH,Urine 6.5 (5.0-7.0); Protein,Urine Trace (Neg - Trace); RBC,Urine 17 /hpf (0-3); Specific Gravity,Urine 1.025 (1.001-1.035); Squamous Epithelial Cell,Urine < 1 /hpf (0-5); Urobilinogen,Urine OVER mg/dL (0.0-1.0); WBC,Urine 89 /hpf (0-5)
[2025-08-09 14:33] LABS: Alanine Aminotransferase 36 U/L (10-49); Albumin, Serum 3.1 gm/dL (3.4-4.8); Albumin/Globulin Ratio 0.7 (1.2-2.2); Alkaline Phosphatase 78 U/L (46-116); Anion Gap 7 (7-16); Aspartate Amino Transferase 46 U/L (0-34); BUN/Creatinine Ratio 18 Ratio (12-20); Bilirubin,Total 0.5 mg/dL (0.3-1.2); Blood Urea Nitrogen 9 mg/dL (9-23); Calcium 8.8 mg/dL (8.3-10.6); Calcium (Corrected) 9.5 mg/dL (8.5-10.1); Carbon Dioxide 33.0 mMol/L (20.0-31.0); Chloride 99 mMol/L (98-107); Creatinine (Component) 0.5 mg/dL (0.6-1.3); Estimated Creatinine Clearance 79.1 mL/min (>60); Globulin 4.4 gm/dL (2.3-3.5); Glucose 94 mg/dL (74-106); Lipase 21 U/L (12-53); Osmolality,Calculated 276 (275-295); Potassium 4.9 mMol/L (3.4-5.1); Sodium 139 mMol/L (136-145); Total Protein 7.5 gm/dL (5.7-8.2); eGFR > 60 See Note
[2025-08-09 14:37] LABS: INR 1.1 (0.9-1.3); Partial Thromboplastin Time 28.0 Seconds (22.0-36.0); Prothrombin Time 11.3 Seconds (9.0-12.2)
--- NOTE | 2025-08-09 15:07 | XR_ITS ---
Examination: Transvaginal ultrasound of the pelvis, complete Technique: Transvaginal sonographic images pelvis performed using de souza scale imaging Exam date and time: August 09, 2025, 1506 hours INDICATIONS: Vaginal bleeding beginning 3 weeks ago FINDINGS: Uterus 7.1 cm Midline heterogeneous mass which is very poorly visualized, 12.6 x 8.3 x 8.6 cm Ovaries are obscured by bowel gas IMPRESSION: Limited study with possible central pelvic mass Recommend CT scan repeat pelvis with intravenous contrast .
--- NOTE | 2025-08-09 16:10 | XR_ITS ---
Examination: CT chest with intravenous contrast CT abdomen with intravenous contrast CT pelvis with intravenous contrast 2-D coronal and sagittal reconstructions Time of exam: August 09, 2025, 1720 hours INDICATIONS: Chest pain lower abdominal pain vaginal bleeding today CTDI: vol (mGy) : 6.01 DLP: (mGycm): 367 Technique: Multiple axial images of the chest, abdomen and pelvis with intravenous contrast, 3.0 mm slice thickness. Images obtained post intravenous injection Isovue 370 60 cc. 2-D sagittal and coronal reconstructions. Low dose protocols were performed. One or more of the following dose reduction techniques were used; automated exposure control, adjustment of the mA and/or KV according to patient size, use of iterative reconstruction technique. Findings: No thoracic aortic aneurysm dilatation No pulmonary artery filling defects No paratracheal or tracheobronchial or bronchopulmonary adenopathy No pneumonia or pulmonary edema Liver is irregular in contour Distended gallbladder with extrahepatic biliary tract dilatation No hydronephrosis Aortic calcification no aneurysmal dilatation Abundant stool throughout the colon No pericecal inflammatory change Intact urinary bladder Vaginal pessary, pelvic floor prolapse Masslike area, sagittal image 85, 11 x 6.5 cm which may be mass in the vagina and involving the cervix, clinical correlation advised IMPRESSION: No pneumonia or pulmonary edema Masslike area 11 x 6.5 cm which may be mass in the vagina involving the cervix, recommend MRI pelvis follow-up pre and postcontrast
--- NOTE | 2025-08-09 16:29 | PD.EDFMALE ---
ED Female Urogenital RME/HPI General Chief complaint: Urogenital-Female Stated complaint: VAGINAL BLEEDING FOR 5 DAYS Time Seen by Provider: 08/09/25 12:44 Arrival date/time: 08/09/25 12:36 RME / HPI RME / HPI Narrative: 08/09/25 12:36 70-year-old female with a history of a hysterectomy presents to the emergency room with a chief complaint of vaginal bleeding x 5 weeks I have greeted and performed a focused initial assessment of this patient. A comprehensive ED assessment and evaluation of the patient, analysis of all test results, and completion of the medical decision making process will be conducted by additional ED providers. DR. ALEJANDRA MAIN ED EVALUATION 70 year old post menopausal female (5-10 years) presents to the ED for evaluation of vaginal bleeding beginning 5 weeks ago. Accompanied by genital pain and weight loss in the last 2 weeks. Denies consulting with PCP or PROVIDER NETWORK MANAGER since onset. Denies fevers, chills, abdominal pain, n/v/d, constipation, or urinary symptoms. Related Data Previous Rx's ?Medication ?Instructions ?Recorded sulfamethoxazole 800 1 tab PO BID #20 tabs 11/13/24 mg-trimethoprim 160 mg tablet (Bactrim DS) Allergies Allergy/AdvReac Type Severity Reaction Status Date / Time morphine Allergy Intermediate Rash Verified 08/09/25 12:38 Review of Systems Review of Systems Systems Reviewed: All systems reviewed, normal except as documented Past Medical History Past Medical History CARDIAC: Positive Hypercholesterolemia, Edema and Hypertension RESPIRATORY: Positive Chronic Obstructive Pulmonary Disease (COPD), Pneumonia, Sleep Apnea, Tobacco Use and Intubation GASTROINTESTINAL: Positive Gastrointestinal Disorders, Hepatitis and Gastroesophageal Reflux Disease REPRODUCTIVE: Positive Uterine Prolapse MUSCULOSKELETAL: Positive Musculoskeletal Disorders and Arthritis PSYCHO/SOCIAL: Positive Recreational Drug Use and Depression OTHER HISTORY: Positive Chicken Pox Surgical History SURGICAL: Positive Cardiac Surgery, Hysterectomy and Tubal Ligation Social History SMOKING STATUS: Never smoker SECOND HAND EXPOSURE: Yes SUBSTANCE USE: opiates and methamphetamine ED Exam Narrative Physical exam: Constitutional: Awake, alert, nontoxic, no acute distress though does appear uncomfortable HEENT: Normocephalic, atraumatic, extraocular movements intact. Neck: Supple CV: Regular rate and rhythm, no murmurs/rubs/gallops Lungs: Clear to auscultation BL, no respiratory distress. Abd: Soft, tenderness to lower abdomen with increased fullness, no rebound, no guarding, no HSM noted to palpation Pelvic: Exam performed in presence of female RN. With speculum exam, there is a device in the vaginal vault that is hard and rectangular shaped, query pessary, positive tenderness, there is bright red blood, no large amount of bleeding during exam. Extremities: No deformities, no edema noted Neuro: AAOx3, CN 2-12 GIBL Skin: Warm, dry, intact Course Course Course Narrative: 1800h: Patient signed out to Dr. Allen pending CT chest abdomen pelvis w/ con and final disposition. Quality Measures none Orders Category Date Time Status CT Screening NOW Care 08/09/25 16:[address] abdomen pelvis wo con Stat Exams 08/09/25 13:[address] chest abdomen pelvis w Stat Exams 08/09/25 16:10 Taken US pelvic complete Stat Exams 08/09/25 13:04 Completed US transvaginal Stat Exams 08/09/25 15:07 Completed CBC Stat Lab 08/09/25 13:52 Completed CMP [Comprehensive Metabolic Panel] Stat Lab 08/09/25 13:52 Completed Drug Screen,Urine Stat Lab 08/09/25 13:23 Completed Lipase Stat Lab 08/09/25 13:52 Completed PT [Prothrombin Time with INR] Stat Lab 08/09/25 13:52 Completed PTT [Partial Thromboplastin Time] Stat Lab 08/09/25 13:52 Completed Type and Screen Stat Lab 08/09/25 13:52 Completed UA [Urinalysis] Stat Lab 08/09/25 13:23 Completed Urine Culture Stat Lab 08/09/25 13:23 Received Vital Signs Vital signs: Vital Signs Temperature 98.5 F 08/09/25 12:53 Pulse Rate 65 08/09/25 12:53 Respiratory Rate 18 08/09/25 12:53 Blood Pressure 154/93 H 08/09/25 12:53 Pulse Oximetry (%) 95 08/09/25 12:53 Oxygen Delivery Method Room Air 08/09/25 12:53 Pulse ox is 95% on room air which is adequate. Urogenital - Female MDM Narrative MDM Narrative:: Alondra Diaz am scribing for and in the presence of Dr. Alejandra. Patient data External records reviewed:: [facility] previous records Clinical information provided by:: patient Social determinants that could affect healthcare access:: substance use Patient has the following chronic illnesses:: Hypertension, hyperlipidemia, pelvic mass, COPD, previous opioid use disorder, on Methadone How is presenting disease/condition affected by chronic disease/condition?: exacerbated by Evaluation data The following diagnostics were reviewed and interpreted by me:: lab results and radiology exam(s) Lab and/or radiology exams considered but not ordered:: None Interpretation Summary: Ordering Physician: Manjit Bower Date of Service: 08/09/25 Procedure(s): CT abdomen pelvis wo con Accession Number(s): [id number] cc: Manjit Bower; Taylor Dubois CLOTH SHRINKING SUPERVISOR; Jack Dumont MD~ Examination: CT abdomen and pelvis without contrast. Coronal 3-D reconstructions. Sagittal 2-D reconstructions. Date and time of exam: August 09, 2025, 1423 hours INDICATIONS: Vaginal bleeding and abdominal pain beginning 5 weeks ago COMPARISON: March 07, 2022 CTDI: vol (mGy): 6.24 DLP: (mGycm): 308 Technique: Axial images of the abdomen have been obtained, 3 mm slice thickness Intravenous contrast material has not been administered. Low dose protocols were performed. One or more of the following dose reduction techniques were used; automated exposure control, adjustment of the mA and/or KV according to patient size, use of iterative reconstruction technique. 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 Dictated By: Jack Dumont MD Signed By: <Electronically signed by Jack Dumont MD in OV> 08/09/25 1542 Ordering Physician: Manjit Bower Date of Service: 08/09/25 Procedure(s): US pelvic complete Accession Number(s): [id number] cc: Manjit Bower; Taylor Dubois NP; Jack Dumont MD~ Examination: Pelvic ultrasound, transabdominal, complete Technique: Transabdominal ultrasound of the pelvis performed using grayscale imaging Date and time of exam: August 09, 2025, 1514 hours INDICATIONS: Vaginal bleeding beginning 3 weeks ago FINDINGS: Complex mass in the mid pelvis 12.6 x 8.3 x 8.6 cm Ovaries are obscured by bowel gas IMPRESSION: Large complex mass in the mid pelvis on this limited study Recommend repeating the CT pelvis portion of the study with intravenous contrast Dictated By: Jack Dumont MD Signed By: <Electronically signed by Jack Dumont MD in OV> 08/09/25 1616 Ordering Physician: Manjit Bower Date of Service: 08/09/25 Procedure(s): US transvaginal Accession Number(s): [id number] cc: Manjit Bower; Taylor Dubois NP; Jack Dumont MD~ Examination: Transvaginal ultrasound of the pelvis, complete Technique: Transvaginal sonographic images pelvis performed using de souza scale imaging Exam date and time: August 09, 2025, 1506 hours INDICATIONS: Vaginal bleeding beginning 3 weeks ago FINDINGS: Uterus 7.1 cm Midline heterogeneous mass which is very poorly visualized, 12.6 x 8.3 x 8.6 cm Ovaries are obscured by bowel gas IMPRESSION: Limited study with possible central pelvic mass Recommend CT scan repeat pelvis with intravenous contrast . Dictated By: Jack Dumont MD Signed By: <Electronically signed by Jack Dumont MD in OV> 08/09/25 1603 Medications / Prescriptions Medications or Prescriptions considered but not ordered:: None Medication administrations:: None Consultations Consultation(s) initiated? (list below): No Diagnosis Urogenital Female Differential Diagnosis: other (See course ) Most likely diagnosis given after review of the tests above:: Vaginal bleeding Admission Indicated Admission indicated?: not indicated Explain why admission is indicated or not indicated:: Signed out pending final disposition. Admission Request Was there a request for admission?: No Disposition Plan Disposition Plan: other (specify) (1800h: Patient signed out to Dr. Allen. ) Discharge Plan Prescriptions/Referrals Prescriptions/Med Rec: No Action sulfamethoxazole-trimethoprim [Bactrim DS] 800-160 mg tablet 1 tab PO BID Qty: 20 0RF Referrals: Taylor Dubois NP [Primary Care Provider] - In 1 week Problem List Clinical Impression: Abnormal vaginal bleeding, Unexplained weight loss Patient/Caregiver Discharge Instructions Print Language: Slovak
--- NOTE | 2025-08-09 17:17 | PC.NURSE ---
CALLED CT AND INFORMED THEM PT HAD AN IV 20G RAC AND THE CT SCREENING IS DONE.
--- NOTE | 2025-08-09 18:20 | PD.EDADDENDU ---
Emergency Room Addendum Addendum Narrative: 1800: Care assumed from Dr. Coleman (emergency physician). Past medical, surgical, social and family history reviewed. Vitals and home medications reviewed. Results and treatment plan discussed. I will assume the care of the patient at this time and will follow the patient, pending Chest CT with contrast. The following addendum documentation note is intended to reflect any pending information, findings, or radiology results not included in the patient?s initial chart by the previous shift scribe. RADIOLOGY Chest/Abdomen/Pelvis CT: Findings: No thoracic aortic aneurysm dilatation No pulmonary artery filling defects No paratracheal or tracheobronchial or bronchopulmonary adenopathy No pneumonia or pulmonary edema Liver is irregular in contour Distended gallbladder with extrahepatic biliary tract dilatation No hydronephrosis Aortic calcification no aneurysmal dilatation Abundant stool throughout the colon No pericecal inflammatory change Intact urinary bladder Vaginal pessary, pelvic floor prolapse Masslike area, sagittal image 85, 11 x 6.5 cm which may be mass in the vagina and involving the cervix, clinical correlation advised IMPRESSION: No pneumonia or pulmonary edema Masslike area 11 x 6.5 cm which may be mass in the vagina involving the cervix, recommend MRI pelvis follow-up pre and postcontrast 19:45 - Dr. Garzon made aware of the patient?s HPI, PMHx, lab and/or radiology results. Discussed treatment plan. 19:54 - Kindly asked to assume care of this pleasant 70 y/o female with Hx of methamphetamine abuse with ongoing vaginal bleeding for approximately 5 weeks duration. Patiednt remained hemodynamically with normal hemoglobin. Patient underwent complex workup includeing pelvic US, CT abdomen/pelvis and contrast Chest/Abdomen/Pelvis. Pelvic US daemonstrates midline pelvic mass which may be related go the cervix, ovaries not visualized. CTA of the abdomen demonstrates distended gall ballder with extra hepatic billiary ductal dilatation there is a noted vaginal pesseray and pelvic floor prolapse. Both pelvic mass and billiary obstruction will require further advanced imaging MRI and MRCP respectively called REMANUFACTURING TECHNICIAN who recommended transfer to tertiary facility with NON GARMENT SEWING MACHINE OPERATOR/ONC services.
--- NOTE | 2025-08-09 20:03 | PD.GYNCONS ---
APPLICATION INTEGRATION SPECIALIST HPI Data of Consult Primary Care Provider: Taylor Dubois NP Consult Narrative cc:: cc: Meds Home Medications and Allergies Allergies Allergy/AdvReac Type Severity Reaction Status Date / Time morphine Allergy Intermediate Rash Verified 08/09/25 12:38 Exam - APPLICATION INTEGRATION SPECIALIST Vital Signs Temp Pulse Resp BP Pulse Ox O2 Del Method 98 F 57 L 19 154/74 H 96 Room Air 08/09/25 19:23 08/09/25 19:23 08/09/25 19:23 08/09/25 19:23 08/09/25 19:23 08/09/25 19:23 APPLICATION INTEGRATION SPECIALIST - Results Labs 08/09/25 13:52 08/09/25 13:52 Labs: Short CBC 08/09/25 Range/Units 13:52 WBC 8.0 (3.6-11.0) Thou/mm3 Hgb 12.1 (12.0-16.0) g/dL Hct 37.0 (36.0-46.0) % Plt Count 147 (140-440) Thou/mm3 BMP 08/09/25 13:52 Sodium 139 Potassium 4.9 Chloride 99 Carbon Dioxide 33.0 H BUN 9 Creatinine 0.5 L Glucose 94 Calcium 8.8 Liver Function 08/09/25 Range/Units 13:52 Total Bilirubin 0.5 (0.3-1.2) mg/dL AST 46 H (0-34) U/L ALT 36 (10-49) U/L Alkaline Phosphatase 78 (46-116) U/L Albumin 3.1 L (3.4-4.8) gm/dL Urine 08/09/25 Range/Units 13:23 Urine Color Yellow (Lt Yel-Yel) Urine Clarity Turbid A (Clear/Hazy) Urine pH 6.5 (5.0-7.0) Ur Specific [place] 1.025 (1.001-1.035) Urine Protein Trace (Neg - Trace) Urine Glucose (UA) Negative (Negative) Assessment and Plan Assessment and plan (1) Pelvic mass: Status: Acute Assessment and plan: I discussed with Dr. Allen my recommendation for Yasmin to have transfer to higher level facility where she can undergo further workup and possible treatment of pelvic mass and extrahepatic biliary duct dilation seen on CT scan. She has 5 week history of vaginal bleeding in the setting of prior total vaginal hysterectomy and rectocele repair by Dr. Sanchez in 2019. She does use pessary for vaginal vault prolapse. Hgb stable at 12.1. She will require MRI workup for both gynecologic and GI findings. Given that she has no cervix after prior TVH, imaging findings are concerning for possible metastatic disease from GI origin vs primary ovarian. Patient uses methamphetamines and is likely not a good candidate for outpatient workup, so best course of action is transfer to a facility with Oncologic Surgery. --- Procedure(s): CT chest abdomen pelvis w Accession Number(s): [id number] cc: Taylor Dubois NP; Jack Dumont MD; Sarah Coleman MD Examination: CT chest with intravenous contrast CT abdomen with intravenous contrast CT pelvis with intravenous contrast 2-D coronal and sagittal reconstructions Time of exam: August 09, 2025, 1720 hours INDICATIONS: Chest pain lower abdominal pain vaginal bleeding today Findings: No thoracic aortic aneurysm dilatation No pulmonary artery filling defects No paratracheal or tracheobronchial or bronchopulmonary adenopathy No pneumonia or pulmonary edema Liver is irregular in contour Distended gallbladder with extrahepatic biliary tract dilatation No hydronephrosis Aortic calcification no aneurysmal dilatation Abundant stool throughout the colon No pericecal inflammatory change Intact urinary bladder Vaginal pessary, pelvic floor prolapse Masslike area, sagittal image 85, 11 x 6.5 cm which may be mass in the vagina and involving the cervix, clinical correlation advised IMPRESSION: No pneumonia or pulmonary edema Masslike area 11 x 6.5 cm which may be mass in the vagina involving the cervix, recommend MRI pelvis follow-up pre and postcontrast (2) Abnormal vaginal bleeding: Status: Acute
--- NOTE | 2025-08-09 20:49 | PC.NURSE ---
[facility] contacted for possible [facility]YNO/ONC for large complex bladder mass/vaginal bleed. [facility] states they have specialty in the am, will open case and try elsewhere meanwhile. Tiffany transferred to answer yelena arteaga
--- NOTE | 2025-08-09 22:53 | PC.NURSE ---
Per MD Tiffany Ulloa confirmed imaging of US through text.
[2025-08-10] VITALS (27 sets, daily range): BP systolic 128–173; BP diastolic 63–94; PULSE 57–89; RESP 16–18; TEMP 36.5–37.1; O2SAT 92–98
--- NOTE | 2025-08-10 | XR_ITS ---
EXAMINATION: MRI pelvis with intravenous contrast TECHNIQUE: Multiple sagittal coronal axial MRI images post administration 12 cc gadolinium Date and time: August 10, 2025, 1600 hours INDICATIONS: History hysterectomy presenting with vaginal bleeding 5 weeks. FINDINGS: Sagittal image 22 demonstrates mass in distribution of the vagina and cervix, AP dimension 4.9 cm mediolateral dimension 5.2 cm, cephalocaudal dimension 7.7 cm This mass is noted with a history given of hysterectomy The mass does indent the posterior margin of the bladder Severe osteopenia with chronic osteoporotic compressions lumbar vertebral bodies IMPRESSION: Sagittal image 22 axial image 22, coronal image 13 demonstrate mass central pelvis 4.9 x 5.2 x 7.7 cm, differential would include mass involving the vagina and the cervix in this patient with a history of hysterectomy, the appearance should be clinically correlated, recommend complete pelvic examination
--- NOTE | 2025-08-10 | XR_ITS ---
Examination: MRI pelvis without contrast Date and time of exam: August 10, 2025, 1551 hours INDICATIONS: History hysterectomy, vaginal bleeding 5 weeks Technique: Multiple MRI axial and sagittal sections lumbar spine. Sagittal T2-weighted images, TR 3500, TE 118 T1 weighted transverse sections, TR 688 T8.5, T2-weighted sagittal sections T1 weighted sagittal sections TR 621, TE 30 T2 axial sections, TR 4, 190, TE 84. Findings: Uterus not identified Noncontrast images do not demonstrate definite suspicious mass in the cul-de-sac or pelvis Rectal riley are not thickened Bladder is intact No pelvic lymphadenopathy Homogeneous osseous signal IMPRESSION: Recommend this patient return for repeat MRI pelvis post intravenous contrast as the current noncontrast study is limited
--- NOTE | 2025-08-10 07:27 | PD.EDADDENDU ---
Emergency Room Addendum <Doreen Juan MD - Last Filed: 08/10/25 18:29> Addendum Narrative: Care assumed from Dr. Allen(emergency physician). Past medical, surgical, social and family history reviewed. Vitals and home medications reviewed. Results and treatment plan discussed. They will assume the care of the patient at this time and will follow the patient, pending review [facility] for transfer for STRIKE PLATE ATTACHER -ONC. Nurse reported to me that [facility] is requesting a vaginal exam. 70 yo s/p x3 and TVH with rectocele repair in [address] for vaginal vault prolapse +/- cystocele who presented to the ED with vaginal bleeding x 5 weeks. The patient was seen by Dr. Alejandra yesterday and had a CT scan that showed a possible mass versus pressure he in place. Dr. Johnson was consulted but did not see the patient in the emergency department. The patient was signed out to me pending [facility] transfer however they were concerned that a pelvic exam was not performed Although it is reported that the patient did not have a pelvic exam on review I can see that the patient has a pelvic exam documented here is Dr. Alejandra's exam which is pasted into my chart. Physical exam: Nurse at the bedside as electroplating laborer. Patient lying in the bed, no acute distress Abdomen: Soft nontender nondistended, no rebound. Speculum attempted however unable to advance. Minimal discharge at the vault. Yellow in color. On bimanual unable to advance my hand into the vagina secondary to foreign body. Skin: No mottling. Cap refill normal. Lungs: Clear to auscultation bilaterally. Assessment and plan: Pending transfer for gynecology oncology evaluation. 1400: Dr. Garzon came to the emergency department and evaluated the patient and did a history and remove the pessary. The patient had minimal bleeding. A repeat study was obtained that included a CT scan without contrast which did not rule out a 3 x 7 cm mass and therefore MRI was ordered. 1630: MRI without contrast did not rule out a definitive mass. 1712: Discussed the case with Dr. Garzon the CADDYMASTER on-call who recommends MRI with contrast. The patient has poor follow-up and at this time we need to make sure that the patient does not have a definitive pelvic mass. Patient's vitals remained stable in the emergency department with a blood pressure 138/87. Pulse of 66 and the patient is not febrile. She tolerated a meal and is not vomiting. Patient signed out to 6 PM attending pending MRI with contrast of the pelvis and final disposition. 08/09/25 12:36 70-year-old female with a history of a hysterectomy presents to the emergency room with a chief complaint of vaginal bleeding x 5 weeks I have greeted and performed a focused initial assessment of this patient. A comprehensive ED assessment and evaluation of the patient, analysis of all test results, and completion of the medical decision making process will be conducted by additional ED providers. DR. ALEJANDRA MAIN ED EVALUATION 70 year old post menopausal female (5-10 years) presents to the ED for evaluation of vaginal bleeding beginning 5 weeks ago. Accompanied by genital pain and weight loss in the last 2 weeks. Denies consulting with PCP or STRIKE PLATE ATTACHER since onset. Denies fevers, chills, abdominal pain, n/v/d, constipation, or urinary symptoms. Related Data Previous Rx's Medication Instructions Recorded sulfamethoxazole 800 1 tab PO BID #20 tabs 11/13/24 mg-trimethoprim 160 mg tablet (Bactrim DS) Allergies Allergy/AdvReac Type Severity Reaction Status Date / Time morphine Allergy Intermediate Rash Verified 08/09/25 12:38 Review of Systems Review of Systems Systems Reviewed: All systems reviewed, normal except as documented Past Medical History Past Medical History CARDIAC: Positive Hypercholesterolemia, Edema and Hypertension RESPIRATORY: Positive Chronic Obstructive Pulmonary Disease (COPD), Pneumonia, Sleep Apnea, Tobacco Use and Intubation GASTROINTESTINAL: Positive Gastrointestinal Disorders, Hepatitis and Gastroesophageal Reflux Disease REPRODUCTIVE: Positive Uterine Prolapse MUSCULOSKELETAL: Positive Musculoskeletal Disorders and Arthritis PSYCHO/SOCIAL: Positive Recreational Drug Use and Depression OTHER HISTORY: Positive Chicken Pox Surgical History SURGICAL: Positive Cardiac Surgery, Hysterectomy and Tubal Ligation Social History SMOKING STATUS: Never smoker SECOND HAND EXPOSURE: Yes SUBSTANCE USE: opiates and methamphetamine ED Exam Narrative Physical exam: Constitutional: Awake, alert, nontoxic, no acute distress though does appear uncomfortable HEENT: Normocephalic, atraumatic, extraocular movements intact. Neck: Supple CV: Regular rate and rhythm, no murmurs/rubs/gallops Lungs: Clear to auscultation BL, no respiratory distress. Abd: Soft, tenderness to lower abdomen with increased fullness, no rebound, no guarding, no HSM noted to palpation Pelvic: Exam performed in presence of female RN. With speculum exam, there is a device in the vaginal vault that is hard and rectangular shaped, query pessary, positive tenderness, there is bright red blood, no large amount of bleeding during exam. Extremities: No deformities, no edema noted Neuro: AAOx3, CN 2-12 GIBL Skin: Warm, dry, intact 1100a: I spoke with OBGYN at [facility]. 1108a: I spoke with OBGYN Dr. Garzon and discussed OBGYN from [facility] recommendations. States she will come to the ED and remove the pessary. Dr. Garzon removed the pessary and recommended repeating the CT abdomen/pelvis. 1550p: I discussed CT results with OBGYN Dr. Garzon. Advised ordering an MRI and calling back once resulted. <Alondra Vanmos - Last Filed: 08/10/25 17:15> Addendum Narrative: Care assumed from Dr. Allen(emergency physician). Past medical, surgical, social and family history reviewed. Vitals and home medications reviewed. Results and treatment plan discussed. They will assume the care of the patient at this time and will follow the patient, pending review [facility] for transfer for STRIKE PLATE ATTACHER -ONC. Nurse reported to me that [facility] is requesting a vaginal exam. 70 yo s/p x3 and TVH with rectocele repair in [address] for vaginal vault prolapse +/- cystocele who presented to the ED with vaginal bleeding x 5 weeks. The patient was seen by Dr. Alejandra yesterday and had a CT scan that showed a possible mass versus pressure he in place. Dr. Johnson was consulted but did not see the patient in the emergency department. The patient was signed out to me pending [facility] transfer however they were concerned that a pelvic exam was not performed Although it is reported that the patient did not have a pelvic exam on review I can see that the patient has a pelvic exam documented here is Dr. Alejandra's exam which is pasted into my chart. Physical exam: Nurse at the bedside as electroplating laborer. Patient lying in the bed, no acute distress Abdomen: Soft nontender nondistended, no rebound. Speculum attempted however unable to advance. Minimal discharge at the vault. Yellow in color. On bimanual unable to advance my hand into the vagina secondary to foreign body. Skin: No mottling. Cap refill normal. Lungs: Clear to auscultation bilaterally. Assessment and plan: Pending transfer for gynecology oncology evaluation. 1400: Dr. Garzon came to the emergency department and evaluated the patient and did a history and remove the pessary. The patient had minimal bleeding. A repeat study was obtained that included a CT scan without contrast which did not rule out a 3 x 7 cm mass and therefore MRI was ordered. 1630: MRI without contrast did not rule out a definitive mass. 1712: Discussed the case with Dr. Garzon the CADDYMASTER on-call who recommends MRI with contrast. The patient has poor follow-up and at this time we need to make sure that the patient does not have a definitive pelvic mass. Patient's vitals remained stable in the emergency department with a blood pressure 138/87. Pulse of 66 and the patient is not febrile. She tolerated a meal and is not vomiting. Patient signed out to 6 PM attending pending MRI with contrast of the pelvis and final disposition. 08/09/25 12:36 70-year-old female with a history of a hysterectomy presents to the emergency room with a chief complaint of vaginal bleeding x 5 weeks I have greeted and performed a focused initial assessment of this patient. A comprehensive ED assessment and evaluation of the patient, analysis of all test results, and completion of the medical decision making process will be conducted by additional ED providers. DR. ALEJANDRA MAIN ED EVALUATION 70 year old post menopausal female (5-10 years) presents to the ED for evaluation of vaginal bleeding beginning 5 weeks ago. Accompanied by genital pain and weight loss in the last 2 weeks. Denies consulting with PCP or STRIKE PLATE ATTACHER since onset. Denies fevers, chills, abdominal pain, n/v/d, constipation, or urinary symptoms. Related Data Previous Rx's Medication Instructions Recorded sulfamethoxazole 800 1 tab PO BID #20 tabs 11/13/24 mg-trimethoprim 160 mg tablet (Bactrim DS) Allergies Allergy/AdvReac Type Severity Reaction Status Date / Time morphine Allergy Intermediate Rash Verified 08/09/25 12:38 Review of Systems Review of Systems Systems Reviewed: All systems reviewed, normal except as documented Past Medical History Past Medical History CARDIAC: Positive Hypercholesterolemia, Edema and Hypertension RESPIRATORY: Positive Chronic Obstructive Pulmonary Disease (COPD), Pneumonia, Sleep Apnea, Tobacco Use and Intubation GASTROINTESTINAL: Positive Gastrointestinal Disorders, Hepatitis and Gastroesophageal Reflux Disease REPRODUCTIVE: Positive Uterine Prolapse MUSCULOSKELETAL: Positive Musculoskeletal Disorders and Arthritis PSYCHO/SOCIAL: Positive Recreational Drug Use and Depression OTHER HISTORY: Positive Chicken Pox Surgical History SURGICAL: Positive Cardiac Surgery, Hysterectomy and Tubal Ligation Social History SMOKING STATUS: Never smoker SECOND HAND EXPOSURE: Yes SUBSTANCE USE: opiates and methamphetamine ED Exam Narrative Physical exam: Constitutional: Awake, alert, nontoxic, no acute distress though does appear uncomfortable HEENT: Normocephalic, atraumatic, extraocular movements intact. Neck: Supple CV: Regular rate and rhythm, no murmurs/rubs/gallops Lungs: Clear to auscultation BL, no respiratory distress. Abd: Soft, tenderness to lower abdomen with increased fullness, no rebound, no guarding, no HSM noted to palpation Pelvic: Exam performed in presence of female RN. With speculum exam, there is a device in the vaginal vault that is hard and rectangular shaped, query pessary, positive tenderness, there is bright red blood, no large amount of bleeding during exam. Extremities: No deformities, no edema noted Neuro: AAOx3, CN 2-12 GIBL Skin: Warm, dry, intact 1100a: I spoke with OBGYN at [facility]. 1108a: I spoke with OBGYN Dr. Garzon and discussed OBGYN from [facility] recommendations. States she will come to the ED and remove the pessary. Dr. Garzon removed the pessary and recommended repeating the CT abdomen/pelvis. 1550p: I discussed CT results with OBGYN Dr. Garzon. Advised ordering an MRI and calling back once resulted. 1700p: I discussed MRI pelvis wo contrast report with OBGYN Dr. Garzon. She recommends repeating the MRI w contrast.
--- NOTE | 2025-08-10 07:30 | PC.NURSE ---
REPORT RECEIVED AND CARE ASSUMED. PT HERE WITH VAGINAL BLEEDING (TOLD NURSE 5 DAYS AND MD 5 WEEKS). PENDING POSSIBLE TRANSFER DUE TO PELVIC MASS.
--- NOTE | 2025-08-10 08:31 | PC.CM ---
Addendum entered by Sienna Conner RN 08/10/25 19:13: I spoke to [facility] ED charge nurse and he states patients transfer has been canceled. I called [facility] and let them know transfer has been canceled. Addendum entered by Sienna Conner RN 08/10/25 12:43: 1000 Dr. Mcwilliams spoke to the doctor at [facility] and he suggested removing the pessary and getting another scan. Dr. Mcwilliams spoke to our OB doctor and she plans on coming to see patient and remove pessary. I will follow up to see if transfer is needed after the scan is repeated. Addendum entered by Sienna Conner RN 08/10/25 09:33: I faxed information to [facility] on pelvic exam. Original Note: 0800 I received a call from [place] at [facility] and he states is doctor is reviewing information that was sent. He wanted to know if anyone did a phyical pelvic exam on patient. I called Ori charge nurse and she was going to check with the doctor and get back to me. 0730 I spoke to Debo this morning and she states they sent a referral to [facility] for ring striker/onc for mass like area 11 x 6.5 cm in vaginal area.
--- NOTE | 2025-08-10 08:48 | PC.NURSE ---
DR. TORO IN TO ATTEMPT SPECULUM EXAM BUT UNABLE TO INSERT SPECULUM D/T PT'S PESSERY. NO VAGINAL BLEEDING NOTED AT THIS TIME
--- NOTE | 2025-08-10 11:18 | PC.NURSE ---
PER DR. TORO, OB MD WHITING DID NOT EXAMINE PT YESTERDAY BUT WILL COME AND EXAMINE PT TODAY
--- NOTE | 2025-08-10 12:15 | PC.NURSE ---
DR KELLEY IN TO EXAMINE PT AND REMOVED PESSERY. SLIGHT AMT BLEEDING FROM VAGINA AFTER DEVICE REMOVED. DR. TORO IN ROOM ALSO DURING PROCEDURE
--- NOTE | 2025-08-10 12:33 | XR_ITS ---
Examination: CT abdomen and pelvis without contrast. Coronal 3-D reconstructions. Sagittal 2-D reconstructions. Date and time of exam: August 10, 2025, 1314 hours, comparison August 09, 2025 INDICATIONS: Postremoval pessary CTDI: vol (mGy): 5.64 DLP: (mGycm): 274 Technique: Axial images of the abdomen have been obtained, 3 mm slice thickness Intravenous contrast material has not been administered. Low dose protocols were performed. One or more of the following dose reduction techniques were used; automated exposure control, adjustment of the mA and/or KV according to patient size, use of iterative reconstruction technique. Findings: The examination is without contrast No focal liver or splenic lesions Distended gallbladder, gallbladder wall thickening, extrahepatic biliary system is not well visualized No bowel obstruction Abundant stool throughout the colon No hydronephrosis The cervix and the vagina appear prominent on this noncontrast study, sagittal image 81, AP dimension 3.8 cm, cephalocaudad dimension at least 7.8 cm with pelvic floor prolapse Severe osteopenia with chronic osteoporotic compressions thoracic lumbar vertebral bodies IMPRESSION: Lack of intravenous contrast limits the study Recommend direct inspection to exclude abnormal enlargement at the vagina and cervix
--- NOTE | 2025-08-10 12:33 | PC.NURSE ---
PENDING REPEAT CT NOW THAT PESSERY IS OUT
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
--- NOTE | 2025-08-10 17:15 | PC.NURSE ---
PENDING REPEAT MRI BUT WITH CONTRAST
--- NOTE | 2025-08-10 18:36 | EDNOTE_ITS ---
Emergency Room Addendum Addendum Narrative: 1800: Care assumed from Dr. Juan (emergency physician). Past medical, surgical, social and family history reviewed. Vitals and home medications reviewed. Results and treatment plan discussed. I will assume the care of the patient at this time and will follow the patient, pending MRI with Contrast. The following addendum documentation note is intended to reflect any pending information, findings, or radiology results not included in the patient?s i nitial chart by the previous shift scribe. 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 0600: Care assumed by Dr. Juan (emergency physician). Past medical, surgical, social and family history reviewed. Vitals and home medications reviewed. Results and treatment plan discussed. They will assume the care of the patient at this time and will follow the patient, pending final disposition.
[2025-08-11 02:00] VITALS: BP 135/84
[2025-08-11 04:04] VITALS: BP 134/77
[2025-08-11 05:46] VITALS: BP 160/85; PULSE 58; RESP 19; TEMP 36.7; O2SAT 96
[2025-08-11 08:43] VITALS: BP 140/85; PULSE 56; RESP 16; TEMP 36.5; O2SAT 99
--- NOTE | 2025-08-11 09:21 | EDNOTE_ITS ---
Emergency Room Addendum <Doreen Juan MD - Last Filed: 08/11/25 10:44> Addendum Narrative: Discussed with the transfer nurse. MRI Pelvis with IV constrast is discussed. Sagittal image 22 axial image 22, coronal image 13 demonstrate mass central pelvis 4.9 x 5.2 x 7.7 cm, differential would include mass involving the vagina and the cervix in this patient with a history of hysterectomy, the appearance should be clinically correlated, recommend complete pelvic examination Patient has no active bleeding overnight. She is not has no complaints and sleeping comfortably well this morning. Lungs are clear to auscultation bilaterally. No wheezing. Abdomen soft nontender non-distended. Plan: The patient will need an appointment with [facility] as an outpatient 1038a: I spoke with OBGYN Dr. Garzon. <Alondra Vanmos - Last Filed: 08/11/25 12:18> Addendum Narrative: Discussed with the transfer nurse. MRI Pelvis with IV constrast is discussed. Sagittal image 22 axial image 22, coronal image 13 demonstrate mass central pelvis 4.9 x 5.2 x 7.7 cm, differential would include mass involving the vagina and the cervix in this patient with a history of hysterectomy, the appearance should be clinically correlated, recommend complete pelvic examination Patient has no active bleeding overnight. She is not has no complaints and sleeping comfortably well this morning. Lungs are clear to auscultation bilaterally. No wheezing. Abdomen soft nontender non-distended. Plan: The patient will need an appointment with [facility] as an outpatient 1038a: I spoke with OBGYN Dr. Garzon. We discussed [facility]'s recommendations and she is requesting txfer for inpatient treatment. Dr. Garzon expressed concerns that the patient may not have a ride to the outpatient appointment in Saturday. States because of the intraabdominal mass a biopsy will need to be performed with vaginal cuff which cannot be done here and is requesting we continue attempts to transfer. 1042a: Transfer nurse made aware of plan to continue transfer. 1100a: I spoke with OBGYN at [facility] and provided with our OBGYN Dr. Smith phone number. 1155a: Patient has been accepted by Dr. Cruz a [facility].
--- NOTE | 2025-08-11 11:06 | PC.CC ---
Addendum entered by Joe Sherwood RN 08/11/25 12:29: transfer packet w/ 1 CD taken to ER. Transport set up for 1430. Addendum entered by Joe Sherwood RN 08/11/25 11:57: 1151: Spoke to [facility] bedside nurse, informed him of transfer. 1148: spoke to Alondra, informed her pt has been accepted. She stated she will inform Dr. Juan. Addendum entered by Joe Sherwood RN 08/11/25 11:48: 1138: received call back from Ayde HERNANDES. Dr. Bustamante accepted pt ER TO ER. call report to [phone] Original Note: 1042: received call from Dr. Juan to re-open transfer request from yesterday for [facility]. Sent clinicals to [facility]
[2025-08-11 13:35] VITALS: BP 146/81; PULSE 59; RESP 15; TEMP 36.8; O2SAT 100
[2025-08-11 14:50] VITALS: BP 146/81; PULSE 59; RESP 15; TEMP 36.8; O2SAT 100
== END 2025-08-11 14:50 | disposition short-term general hospital (02) ==
PROVIDERS: Nurse Practitioner Family; Emergency Provider Emergency Medicine; PCP Nurse Practitioner Women's Health
DX: N95.0 Postmenopausal bleeding (principal); T83.89XA Other specified complication of genitourinary prosthetic devices, implants and grafts, initial encounter; N85.2 Hypertrophy of uterus; N99.3 Prolapse of vaginal vault after hysterectomy
CPT/HCPCS: 36415; 71260; 72195; 72196; 74176; 74177; 76830; 76856; 80053; 80307; 81001; 83690; 85025; 85610; 85730; 86850; 86900; 86901; 87086; 99283; A4649; A9577; Q9967